=== PATIENT | female | born 1970 | race Caucasian/White ===

== ENCOUNTER → 2020-12-09 | Outpatient (CLI) | payer OTHER | LOC: RAD 08:42 | DX: R30.9 Painful micturition, unspecified (principal); Z96.0 Presence of urogenital implants ==

== ENCOUNTER → 2020-12-12 | Outpatient (CLI) | payer OTHER | LOC: RAD 13:30 | DX: R10.11 Right upper quadrant pain (principal); Z90.49 Acquired absence of other specified parts of digestive tract; Z90.710 Acquired absence of both cervix and uterus | CPT/HCPCS: Q9967 ==